=== PATIENT | female | born 1960 | race Caucasian/White ===

== ENCOUNTER → 2016-09-15 | Outpatient (CLI) | payer OTHER ==
[~2016-09-15] MED LIST: AUGMENTIN 875875 M1 PO; B-100 COMPLEX1 EAC1 PO; MEDROL DOSPAK21 TAB PO; NAPROSYN500 MG PO; POTASSIUM20; ULTRAM 50MG TAB50 MG PO; VALTREX1000 MG PO; VITAMIN D1000 UNI1 PO; VITAMINC500 PO
== END ==
LOC: ULTRA 09:47
DX: Z12.31 Encounter for screening mammogram for malignant neoplasm of breast (principal); D26.1 Other benign neoplasm of corpus uteri